=== PATIENT | female | born 1970 ===

== ENCOUNTER 2023-10-28 11:18 | Outpatient (CLI) | payer OTHER, SELFPAY ==
--- NOTE | 2023-10-28 11:15 | CRLHL7_ITS ---
For Patients: As a result of the Century Cures Act, medical imaging exams and procedure reports are released immediately into your electronic medical record. You may view this report before your referring provider. If you have questions, please contact your health care provider. Technique: Single contrast enema performed with water-soluble contrast in routine fashion. Fluoroscopy time 1 minute 26 seconds. Indication: Constipation Comparison: Outside exams 12/28/2022, 06/30/2020 Findings: A few scattered diverticula are noted throughout the sigmoid colon. Mild colonic stool is present within the right side of the colon. No obstruction or suspicious lesion. No stricture. Contrast extends to the cecum with mild reflux into the terminal ileum. Impression: Mild sigmoid diverticulosis. Mild right-sided colonic stool. Dictated by Tao Headley MD @ 10/28/2023 12:40:50 PM (Electronically Signed)
== END 2023-10-28 11:19 | disposition home or self-care (01) ==
PROVIDERS: Visit Provider Internal Medicine Gastroenterology
DX: K59.00 Constipation, unspecified (principal); K57.30 Diverticulosis of large intestine without perforation or abscess without bleeding
CPT/HCPCS: 74270; Q9963